=== PATIENT | male | born 1990 | race Caucasian/White ===

== ENCOUNTER 2021-10-08 11:49 | Emergency (ER) | payer MEDICAID ==
[~2021-10-08] VITALS: Ht 190.5 cm; Wt 102.3 kg
[2021-10-08 11:51] VITALS: BP 116/68
[2021-10-08] MEDS ORDERED: DOXYCYCLINE HYCLATE 100 MG TABLET PO ONE (13:00)
[2021-10-08] MEDS ORDERED: IBUPROFEN 600 MG TABLET PO ONE (13:00)
[2021-10-08] MEDS ORDERED: IBUP-2070 PO (13:39)
[2021-10-08] MEDS ORDERED: DOXY-354 PO (13:39)
== END 2021-10-08 13:54 | disposition home or self-care (01) ==
LOC: EMS 11:54
DX: L03.114 Cellulitis of left upper limb (principal); L02.512 Cutaneous abscess of left hand
CPT/HCPCS: 99284; Z7502; Z7610